=== PATIENT | male | born 1975 | race Caucasian/White ===

== ENCOUNTER 2021-07-12 15:00 | Emergency (ER) | payer SELFPAY ==
[2021-07-12 15:23] LABS: #Basophils 0.1 thou/uL (0.0-0.2); #Eosinphils 0.2 thou/uL (0.0-0.7); #Lymphocytes 2.2 thou/uL (1.20-3.40); #Monocytes 1.1 thou/uL (0.11-0.59); #Neutrophils 10.5 thou/uL (1.40-6.50); %Basophils 0.6 % (0.0-1.0); %Eosinophils 1.3 % (0.0-10.0); %Lymphocytes 15.6 % (21.0-51.0); %Monocytes 7.6 % (0.0-10.0); %Neutrophils 74.8 % (42.0-75.0); Hemoglobin 18.3 g/dL (14.0-18.0); Mean Corpuscular HGB CONC 33.3 g/dL (32.0-36.0); Mean Corpuscular Hemoglobin 34.2 pg (27.0-31.0); Mean Platelet Volume 7.2 fL (7.4-10.4); Platelet Count 261 thou/uL (130-400); RBC Distribution Width 13.3 % (11.5-14.5); Red Blood Cell (RBC) Count 5.34 mill/uL (4.70-6.10)
[2021-07-12 15:42] LABS: ALT (SGPT) 28 U/L (8-55); AST (SGOT) 25 U/L (5-34); Alkaline Phosphatase 41 U/L (40-110); Anion Gap 12 mmol/L (10-20); BUN (Urea Nitrogen) 10 mg/dL (8.9-20.6); Bilirubin, Total 0.9 mg/dL (0.2-1.2); Calc. Creatinine Clearance 0 mL/min (70-130); Calcium 9.1 mg/dL (7.8-10.44); Carbon Dioxide 23 mmol/L (22-29); Chloride 104 mmol/L (98-107); Globulin 2.5 g/dL (2.4-3.5); Glucose 90 mg/dL (70-105); Lipase 25 U/L (8-78); Potassium 4.7 mmol/L (3.5-5.1); Protein, Total 6.5 g/dL (6.0-8.3); Sodium 134 mmol/L (136-145)
[2021-07-12] MEDS ORDERED: Sucralfate 1 GM/10 ML UDCUP ONE ×2 (15:48→15:50)
[2021-07-12] MEDS ORDERED: Famotidine/PF 20 mg/2ml Vial ONE (15:48)
[2021-07-12] MEDS ORDERED: Pantoprazole 40 MG VIAL ONE ×2 (15:48→15:50)
[2021-07-12] MEDS ORDERED: Sterile Water 10 ML ONE (15:51)
[2021-07-12] MEDS ORDERED: Baclofen 10 MG TAB PO SCH (16:00)
[2021-07-12 16:21] LABS: Bacteria/HPF None Seen HPF (None Seen); Bilirubin Negative (Negative); Blood, Urine Negative (Negative); Clarity Clear (Clear); Glucose, Urine (Dipstick) Normal (Negative); Ketone, Urine Trace mg/dL (Negative); Leukocyte 75 Leu/uL (Negative); Nitrite Negative (Negative); Protein, Urine (Dipstick) 30 mg/dL (Neg-Trace); RBC/HPF 0-3 HPF (0-3); Specific Gravity, Urine 1.037 (1.002-1.036); Squamous Epithelial 0-3 HPF (0-3); Urobilinogen 6 mg/dL (Less than 2); WBC/HPF 0-3 HPF (0-3); pH, Urine 6.5 (5.0-9.0)
[2021-07-12 18:22] LABS: Troponin I Less than 0.010 ng/mL (< 0.028)
== END 2021-07-12 19:01 | disposition home or self-care (01) ==
LOC: ERS 15:00
DX: K21.9 Gastro-esophageal reflux disease without esophagitis (principal); R06.6 Hiccough; I25.10 Atherosclerotic heart disease of native coronary artery without angina pectoris; F17.210 Nicotine dependence, cigarettes, uncomplicated
CPT/HCPCS: 36415; 71045; 80053; 81003; 81015; 83690; 84484; 85025; 93005; 94760; 96374; 96375; C9113; S0028

== ENCOUNTER 2021-07-19 13:21 | Observation (INO) | payer SELFPAY ==
[2021-07-19] MEDS ORDERED: Metoclopramide 10 MG/10 ML UDCUP ONE (14:03)
[2021-07-19] MEDS ORDERED: Famotidine/PF 20 mg/2ml Vial ONE (14:03)
[2021-07-19] MEDS ORDERED: Metoclopramide HCl 10 MG/2 ML VIAL ONE (14:04)
[2021-07-19 14:17] LABS: #Basophils 0.1 thou/uL (0.0-0.2); #Eosinphils 0.4 thou/uL (0.0-0.7); #Lymphocytes 1.9 thou/uL (1.20-3.40); #Neutrophils 11.9 thou/uL (1.40-6.50); %Basophils 0.6 % (0.0-1.0); %Eosinophils 2.4 % (0.0-10.0); %Lymphocytes 12.1 % (21.0-51.0); %Monocytes 6.4 % (0.0-10.0); %Neutrophils 78.4 % (42.0-75.0); Hemoglobin 17.1 g/dL (14.0-18.0); Mean Corpuscular HGB CONC 33.1 g/dL (32.0-36.0); Mean Corpuscular Hemoglobin 34.2 pg (27.0-31.0); Mean Platelet Volume 7.2 fL (7.4-10.4); Platelet Count 256 thou/uL (130-400); RBC Distribution Width 13.3 % (11.5-14.5); Red Blood Cell (RBC) Count 4.99 mill/uL (4.70-6.10); White Blood Cell (WBC) Count 15.2 thou/uL (4.8-10.8)
[2021-07-19 14:41] LABS: ALT (SGPT) 26 U/L (8-55); AST (SGOT) 21 U/L (5-34); Albumin 3.5 g/dL (3.5-5.0); Alkaline Phosphatase 45 U/L (40-110); Anion Gap 12 mmol/L (10-20); BUN (Urea Nitrogen) 11 mg/dL (8.9-20.6); Bilirubin, Total 0.7 mg/dL (0.2-1.2); Calc. Creatinine Clearance 0 mL/min (70-130); Calcium 8.8 mg/dL (7.8-10.44); Carbon Dioxide 24 mmol/L (22-29); Chloride 108 mmol/L (98-107); Globulin 2.3 g/dL (2.4-3.5); Glucose 108 mg/dL (70-105); Potassium 4.5 mmol/L (3.5-5.1); Protein, Total 5.8 g/dL (6.0-8.3); Sodium 139 mmol/L (136-145)
[2021-07-19 15:20] LABS: CKMB 1.8 ng/mL (0-6.6)
[2021-07-19] MEDS ORDERED: Aspirin Chewable 81 MG TAB ONE (15:39)
[2021-07-19] MEDS ORDERED: Acetaminophen 325 MG TAB PO PRN (16:28)
[2021-07-19] MEDS ORDERED: Acetaminophen 650 MG Suppository PR PRN (16:28)
[2021-07-19] MEDS ORDERED: Ondansetron PF 4 MG/2 ML Vial IVP PRN (16:28)
[2021-07-19] MEDS ORDERED: Ondansetron ODT 4 MG TAB PO PRN (16:28)
[2021-07-19] MEDS ORDERED: Calcium Carbonate 500 MG ChewTAB PO PRN (16:35)
[2021-07-19 17:21] VITALS: BMI 26.8
[2021-07-19] MEDS ORDERED: hydrALAZINE 20 MG/ML VIAL SLOW IVP PRN (17:43)
[2021-07-19 18:10] LABS: Troponin I 0.054 ng/mL (< 0.028)
[2021-07-19 19:05] LABS: SARS-CoV-2 NAA Rapid Test Not Detected (NotDetected)
[2021-07-19] MEDS: Famotidine 20 MG TAB PO SCH (20:19)
[2021-07-19 20:50] LABS: Troponin I 0.043 ng/mL (< 0.028)
[2021-07-20 05:43] LABS: Hemoglobin A1c 4.7 % (4.0-6.0)
[2021-07-20] MEDS: Famotidine 20 MG TAB PO SCH (07:54)
[2021-07-20] MEDS ORDERED: Metoprolol Tartrate 25 MG TAB PO SCH (09:00)
[2021-07-20] MEDS ORDERED: Clopidogrel Bisulfate 75 MG TAB PO SCH (09:00)
[2021-07-20 12:28] VITALS: BP 127/63; TEMP 98.1
[2021-07-20] MEDS ORDERED: Regadenoson 0.4 MG/5 ML SYRINGE ONE (13:03)
[2021-07-20] MEDS ORDERED: Atorvastatin Calcium 40 MG TAB PO SCH (21:00)
== END 2021-07-20 15:20 | disposition home or self-care (01) ==
LOC: ERS 13:21 → 2SW 15:22
PROVIDERS: ADMIT Student in an Organized Health Care Education/Training Program; ATTEND Student in an Organized Health Care Education/Training Program
DX: R07.89 Other chest pain (principal); F17.210 Nicotine dependence, cigarettes, uncomplicated; R11.2 Nausea with vomiting, unspecified; R06.6 Hiccough; R06.02 Shortness of breath; R55 Syncope and collapse; R05.9 Cough, unspecified; R61 Generalized hyperhidrosis; I25.2 Old myocardial infarction; E78.5 Hyperlipidemia, unspecified; I25.10 Atherosclerotic heart disease of native coronary artery without angina pectoris; I10 Essential (primary) hypertension; R77.8 Other specified abnormalities of plasma proteins; Z79.02 Long term (current) use of antithrombotics/antiplatelets; Z79.899 Other long term (current) drug therapy; Z95.1 Presence of aortocoronary bypass graft; Z98.84 Bariatric surgery status; Z20.822 Contact with and (suspected) exposure to COVID-19
CPT/HCPCS: 36415; 71045; 78452; 80053; 80061; 82553; 83036; 84443; 84484; 85025; 93005; 93017; 96365; 96366; 96375; A9500; G0378; J2765; J2785; S0028; U0002

== ENCOUNTER 2021-08-31 08:19 | Emergency (ER) | payer SELFPAY | END 2021-08-31 10:42 | disposition home or self-care (01) | LOC: ERS 08:19 | DX: R06.6 Hiccough (principal); R07.89 Other chest pain | CPT/HCPCS: 99283 ==